=== PATIENT | male | born 1980 | race African-American/Black ===

== ENCOUNTER 2017-01-26 06:25 | Day surgery (SDC) | payer BC ==
--- NOTE | 2017-01-17 15:48 | HP ---
DATE OF SURGERY: 01/26/2017 BRIEF HISTORY: This is a 36-year-old gentleman who underwent biopsy of a pigmented lesion on the back. Pathology demonstrated junctional melanocytic nevus with dysplastic type and moderate atypia. Patient is here today for wide excision. PAST MEDICAL HISTORY: No coronary disease, hypertension, or diabetes. Patient has a history of hypercholesterolemia. PAST SURGICAL HISTORY: Surgery for a deviated septum. He has had hyoid surgery and Lasik. MEDICATION: Atorvastatin. ALLERGIES: None. SOCIAL HISTORY: Patient does not smoke. He drinks socially. PHYSICAL EXAMINATION: Lungs: Clear. Heart: Regular rhythm. Abdomen: Soft. Back: There is an 8-mm area consistent with biopsy site in his mid back. It is approximately 2 palm widths from T7 and 4 fingerbreadths to the left of the midline. This area was circled today in the office. He has no obvious inguinal adenopathy on either side or cervical adenopathy. IMPRESSION/PLAN: Dysplastic nevus, back. We will plan for a wide excision in the operating room. Prior to surgery, the patient will have a slide review. The indications, alternatives, complications of procedure discussed. Questions answered. Will plan to obtain written consent on the day of surgery. Moira OCHOA [id number] Cc: Moira Zamora M.D. MTDD
[2017-01-19 15:00] VITALS: BMI 29.5
[2017-01-26 06:45] VITALS: TEMP 97.9
[2017-01-26] MEDS ORDERED: LIDOCAINE HCL 2% (20ML MULTI-DOSE VIAL) NR ONE (07:12)
[2017-01-26] MEDS ORDERED: BUPIVACAINE HCL/PF 2.5 MG/ML - 30 ML VIAL IJ ONE (07:12)
[2017-01-26] MEDS ORDERED: BUPIVACAINE HCL/PF 0.5% (5MG/ML) 10 ML VIAL ONE (07:12)
[2017-01-26] MEDS ORDERED: LIDOCAINE 1%/EPI 1:100000 (20 ML MULTI DOSE VIAL) ONE (07:12)
[2017-01-26] MEDS ORDERED: LIDOCAINE HCL 1%, 10 MG/ML (20ML VIAL) ONE (07:12)
[2017-01-26] MEDS ORDERED: MIDAZOLAM HCL 2 MG/2 ML SINGLE DOSE VIAL ONE ×2 (07:20)
[2017-01-26] MEDS ORDERED: SUCCINYLCHOLINE CHLORIDE 200 MG/10 ML VIAL ONE (07:20)
[2017-01-26] MEDS ORDERED: PROPOFOL 20 ML ONE (07:23)
[2017-01-26] MEDS ORDERED: LIDOCAINE 1%/EPI 1:100000 (50 ML MULTI DOSE VIAL) INF ONE (08:40)
[2017-01-26] MEDS ORDERED: oxyCODONE HCL 5 MG TABLET PO PRN (09:02)
[2017-01-26] MEDS ORDERED: ONDANSETRON 4 MG/2 ML VIAL IVPUSH PRN (09:02)
[2017-01-26] MEDS ORDERED: LACTATED RINGERS SOLUTION 1,000 ML IV SCH (09:15)
[2017-01-26 11:14] VITALS: BP 130/74; PULSE 64
--- NOTE | 2017-01-27 09:17 | OP ---
DATE OF OPERATION: 01/26/2017 PREOPERATIVE DIAGNOSIS: Back nevus. POSTOPERATIVE DIAGNOSIS: Back nevus. PROCEDURE: Wide excision of back nevus with 5-cm wound closure. SURGEON: Haroon Heller MD CAUSTICISER: None. ANESTHESIA: Jeff Riddle MD (MAC/1% lidocaine without epinephrine, approximately 10 mL). ESTIMATED BLOOD LOSS: Minimal. SPECIMEN: Back nevus. INDICATION FOR PROCEDURE: This is a 36-year-old gentleman with biopsy-proven dysplastic nevus of the back. He is here for wide excision. DESCRIPTION OF PROCEDURE: Patient identified and appropriately positioned on the operating room table. After IV sedation, the area prepped and draped in the usual sterile fashion with ChloraPrep; 1% lidocaine without epinephrine was used for anesthesia, approximately 10 mL. The skin around the nevus was incised in elliptical fashion oriented longitudinally. There was a minimum of 1-cm margins in all directions. This excision was taken down to the level of the subcutaneous fat. The specimen was marked with a single silk stitch, marking superior. The wound irrigated. Hemostasis achieved with cautery as needed. The dermis reapproximated with interrupted inverted 3-0 chromic sutures, and the skin closed with an interrupted vertical mattress, 3-0 Prolene, followed by Dermabond. At the conclusion of the case, sponge and needle counts were correct. ATTESTATION: A brief operative note handwritten on the preprinted form. Moira OCHOA [id number] cc: Rene Nelson MD
--- NOTE | 2017-01-28 09:48 | PATH ---
Surgical Pathology Report Patient Name: YOLIS VACA [facility]. Rec. #: [id number] /Age/Gender: 1980 (Age: 36) / M Account: [id number] Location: [facility] AMB[facility] Taken: 01/26/2017 Received: 01/26/2017 Reported: 01/28/2017 Physicians: Haroon Heller Specimen(s) Received BACK NEVUS Clinical History Back nevus Final Diagnosis SKIN, BACK, EXCISION: JUNCTIONAL NEVUS WITH DERMAL CHRONIC INFLAMMATION AND MELANOPHAGES WITHIN THE UNDERLYING DERMIS (INCONTINENCE OF PIGMENT). NO MALIGNANT MELANOMA OR SIGNIFICANT ATYPIA IDENTIFIED. MARGINS OF EXCISION FREE OF LESION WITH NEAREST LATERAL MARGIN 6 MM FROM LESION. AREA SUGGESTIVE OF SUPERFICIAL DERMAL SCAR PRESENT. ADDITIONAL AREAS OF NONSPECIFIC MILD DERMAL CHRONIC INFLAMMATION PRESENT. Comment: Also see [id number]. Taking the suture to be at 12:00, the nearest margin is the 3:00 margin. The recommend correlation with clinical findings and followup as clinically indicated. Electronically Signed Robert Fong M.D. Gross Description Received in formalin labeled "back nevus," is a 3.5 x 1.8 cm hernandez, elliptical portion of skin excised to a depth of 1.3 cm. There is an undesignated suture present at one tip of the specimen which is arbitrarily designated 12:00. The epidermal surface displays a central 0.5 x 0.4 cm brown pigmented lesion. The specimen is inked as follows: 12:00 to 3:00 to 6:00 green; 6:00 to 9:00 to 12:00 blue; deep black. The 12:00 tip is differentially inked red. The specimen is serially sectioned from 12:00 to 6:00. The specimen is entirely and sequentially submitted from 12:00 to 6:00 in 9 cassettes with the 12:00 tip in cassette 1, the 6:00 tip in cassette 9 and the lesion in cassettes 4-6. 01/26/2017 [facility]01/26/2017
== END 2017-01-26 11:00 | disposition home or self-care (01) ==
LOC: FASU 06:25
PROVIDERS: ATTEND Surgery
PROC: 0HQ6XZZ Repair Back Skin, External Approach (ICD-10-PCS; 2017-01-26)
PROC: 0HB6XZX Excision of Back Skin, External Approach, Diagnostic (ICD-10-PCS; principal; 2017-01-26 08:13)
DX: D22.5 Melanocytic nevi of trunk (principal)
CPT/HCPCS: 88305-TC; 94760